=== PATIENT | female | born 2000 | race Caucasian/White ===

== ENCOUNTER 2020-01-31 18:12 | Emergency (ER) | payer SELFPAY ==
--- OUTSIDE RECORDS SUMMARY | 2020-01-31 18:13 | XMS REPORT | Continuity of Care Document ---
:2000 Author Organization [facility] t Address [address] [place] [address] Care Team Providers Name Role Phone Domenic Ly Attending Clinician Doctor Unassigned, Name Attending Clinician Unavailable Problems This patient has no known problems. Allergies, Adverse Reactions, Alerts This patient has no known allergies or adverse reactions. Medications This patient has no known medications. Procedures This patient has no known procedures. Encounters Start End Encounter Admission Attending Care Care Encounter Source Date/Time Date/Time Type Type Clinicians Facility Department ID 2019-02-25 2019-02-25 Emergency Reymundo [facility] [id number] 16:24:07 17:40:00 Teddy Mcknight [id number] [place] [id number] [place] [id number] 2019-02-25 2019-02-25 Orders Doctor ANNE [id number] 00:00:00 00:00:00 Only UnassJUSTINE duggan [id number] [employer] [facility] [id number] Results This patient has no known results.
[2020-01-31 19:31] LABS: Urine Blood TRACE (NEG); Urine Glucose NEGATIVE (NEG); Urine Protein NEGATIVE (NEG); Urine Specific Gravity >1.030 (1.005-1.030); Urine pH 6.5 (5.0-7.0)
--- NOTE | 2020-01-31 23:03 | EDPHYS ---
Physician Documentation [facility] Name: Taryn Marvin Age: 19 yrs Sex: Female : 2000 Arrival Date: 01/31/2020 Time: 18:15 Bed 20 Private MD: ED Physician Cam Dumont HPI: 01/30 19:08 This 19 yrs old Female presents to ER via Ambulatory with complaints of jr8 Abdominal Pain. 19:08 The patient presents with abdominal pain in the periumbilical area. right lower jr8 quadrant. Onset: The symptoms/episode began/occurred gradually, 2 day(s) ago, and became worse and became persistent. The symptoms radiate to right back. Associated signs and symptoms: none. The symptoms are described as sharp. Modifying factors: The symptoms are alleviated by nothing, the symptoms are aggravated by nothing. Severity of pain: At its worst the pain was moderate in the emergency department the pain is unchanged. The patient has not experienced similar symptoms in the past. The patient has not recently seen a physician. 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 - Social history:: Smoking status: Patient denies any tobacco usage or history of. ROS: 19:08 Eyes: Negative for injury, pain, redness, and discharge, ENT: Negative for injury, jr8 pain, and discharge, Neck: Negative for injury, pain, and swelling, Cardiovascular: Negative for chest pain, palpitations, and edema, Respiratory: Negative for shortness of breath, cough, wheezing, and pleuritic chest pain, Back: Negative for injury and pain, MS/Extremity: Negative for injury and deformity, Skin: Negative for injury, rash, and discoloration, Neuro: Negative for headache, weakness, numbness, tingling, and seizure. 19:08 Abdomen/GI: Positive for abdominal pain, Negative for nausea, vomiting, and diarrhea, constipation, abdominal cramps, abdominal distension. Exam: 19:08 Eyes: Pupils equal round and reactive to light, extra-ocular motions intact. Lids and jr8 lashes normal. Conjunctiva and sclera are non-icteric and not injected. Cornea within normal limits. Periorbital areas with no swelling, redness, or edema. ENT: Nares patent. No nasal discharge, no septal abnormalities noted. Tympanic membranes are normal and external auditory canals are clear. Oropharynx with no redness, swelling, or masses, exudates, or evidence of obstruction, uvula midline. Mucous membranes moist. Neck: Trachea midline, no thyromegaly or masses palpated, and no cervical lymphadenopathy. Supple, full range of motion without nuchal rigidity, or vertebral point tenderness. No Meningismus. Cardiovascular: Regular rate and rhythm with a normal S1 and S2. No gallops, murmurs, or rubs. Normal PMI, no JVD. No pulse deficits. Respiratory: Lungs have equal breath sounds bilaterally, clear to auscultation and percussion. No rales, rhonchi or wheezes noted. No increased work of breathing, no retractions or nasal flaring. Back: No spinal tenderness. No costovertebral tenderness. Full range of motion. Skin: Warm, dry with normal turgor. Normal color with no rashes, no lesions, and no evidence of cellulitis. MS/ Extremity: Pulses equal, no cyanosis. Neurovascular intact. Full, normal range of motion. Neuro: Awake and alert, GCS 15, oriented to person, place, time, and situation. Cranial nerves II-XII grossly intact. Motor strength 5/5 in all extremities. Sensory grossly intact. Cerebellar exam normal. Normal gait. 19:08 Abdomen/GI: Inspection: abdomen appears normal, Bowel sounds: active, all quadrants, Palpation: soft, in all quadrants, moderate abdominal tenderness, in the umbilical area and right lower quadrant, mass, that is pulsatile, rebound tenderness, is not appreciated, voluntary guarding, is not appreciated, involuntary guarding, is not appreciated, no appreciated organomegaly, Indicators: McBurney's point is not tender, Rodrigez's sign is negative, Rovsing's sign is negative, Liver: tenderness, is not appreciated. Vital Signs: 18:39 BP 122 / 81; Pulse 93; Resp 16; Temp 97.1; Pulse Ox 100% on R/A; Weight 74.84 kg; iw Height 5 ft. 2 in. (157.48 cm); 19:00 BP 109 / 69; Pulse 91; Resp 16; Pulse Ox 99% ; Pain 0/10; mt2 21:01 BP 115 / 69; Pulse 94; Resp 16; Pulse Ox 99% ; Pain 0/10; mt2 22:00 BP 104 / 78; Pulse 89; Resp 16; Pulse Ox 98% on R/A; Pain 0/10; mt2 18:39 Body Mass Index 30.18 (74.84 kg, 157.48 cm) MDM: 18:47 Patient medically screened. jr8 22:50 Data reviewed: vital signs, nurses notes, radiologic studies, CT scan. Data jr8 interpreted: Pulse oximetry: on room air is 98 %. Interpretation: normal. 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 ED course: Patient hemodynamically stable. No acute findings on CT. Lab nor Nursing staff could establish and IV or get blood. Patient did not want to be stuck any longer which is understandable. Convinced patient to a least let us scan her to make sure there was nothing surgically emergent going on which she let us do. Recommended f/u with PCP and GI. If she were to run fever or worsen to immediately come back. Patient grateful and understood instructions . 01/30 18:58 Order name: Urine Dipstick--Ancillary (enter results); Complete Time: 20:04 01/30 18:46 Order name: IV Saline Lock; Complete Time: 21:37 [facility] 01/30 18:46 Order name: Labs collected and sent; Complete Time: 21:37 [facility] 01/30 18:46 Order name: Urine Test (obtain specimen); Complete Time: 18:57 [facility] 01/30 18:46 Order name: Urine Dipstick-Ancillary (obtain specimen); Complete Time: 18:57 [facility] 01/30 18:58 Order name: Urine --Ancillary (enter results); Complete Time: 20:04 01/30 20:22 Order name: Abdomen EDMS Administered Medications: No medications were administered Disposition: 01/31/20 23:03 Discharged to Home. Impression: Lower abdominal pain, unspecified. - Condition is Stable. - Discharge Instructions: Abdominal Pain, Adult. - Medication Reconciliation Form, Thank You Letter, Antibiotic Education, Prescription Opioid Use form. - Follow up: Trace Rivera MD; When: 1 week; Reason: If symptoms return, Recheck today's complaints, Continuance of care, Re-evaluation by your physician. - Problem is new. - Symptoms have improved. Addendum: 02/04/2020 20:26 Co-signature as Attending Physician, Cam Dumont MD. r n Signatures: Dispatcher [employer] EDVT Elaine Elena RN RN Cam Gonzalez MD MD rn Luis Vanessa, MARIANO PA jr8 Alondra Romero RN RN mt2 Corrections: (The following items were deleted from the chart) 01/30 20:22 20:05 Abdomen Pelvis W Con+CT.RAD.BRZ ordered. [facility] EDVT 23:13 23:03 01/31/2020 23:03 Discharged to Home. Impression: Lower abdominal pain, mt2 unspecified. Condition is Stable. Forms are Medication Reconciliation Form, Thank You Letter, Antibiotic Education, Prescription Opioid Use. Follow up: Trace Rivera; When: 1 week; Reason: If symptoms return, Recheck today's complaints, Continuance of care, Re-evaluation by your physician. Problem is new. Symptoms have improved. jr8
--- NOTE | 2020-01-31 23:03 | ER ---
Nurse's Notes [facility] Name: Taryn Marvin Age: 19 yrs Sex: Female : 2000 Arrival Date: 01/31/2020 Time: 18:15 Bed 20 Private MD: Diagnosis: Lower abdominal pain, unspecified Presentation: 01/30 18:39 Chief complaint: Patient states: RLQ pain since last also nauseated after iw eating, also having back pains, RLQ was tender to touch, no vomiting, pain lessens after urinating. Coronavirus screen: At this time, the client does not indicate any symptoms associated with coronavirus-19. Ebola Screen: Patient negative for fever greater than or equal to 101.5 degrees Fahrenheit, and additional compatible Ebola Virus Disease symptoms Patient denies exposure to infectious person. Patient denies travel to an Ebola-affected area in the 21 days before illness onset. No symptoms or risks identified at this time. Initial Sepsis Screen: Does the patient meet any 2 criteria? No. Patient's initial sepsis screen is negative. Does the patient have a suspected source of infection? No. Patient's initial sepsis screen is negative. Risk Assessment: Do you want to hurt yourself or someone else? Patient reports no desire to harm self or others. Onset of symptoms was January 27, 2020. 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 - Social history:: Smoking status: Patient denies any tobacco usage or history of. Screenin:10 Abuse screen: Denies threats or abuse. Nutritional screening: No deficits noted. mt2 Tuberculosis screening: No symptoms or risk factors identified. Fall Risk None identified. Assessment: 19:15 Reassessment: Patient and/or family updated on plan of care and expected duration. Pain mt2 level reassessed. Patient is alert, oriented x 3, equal unlabored respirations, skin warm/dry/pink. General: Appears in no apparent distress. Behavior is cooperative. Pain: Complains of pain in right lower quadrant Pain currently is 4 out of 10 on a pain scale. GI: Abdomen is flat, Bowel sounds present X 4 quads. Abdomen is tender to palpation. 20:00 Reassessment: PHLEBO TECH at bedside for lab draw, unsuccessful attempt at obtaining sg labs at this time. 20:21 Reassessment: UNSUCCESSFUL IV ATTEMPT AND BLOOD DRAW. PROVIDER INFORMED. PT TO HAVE mt2 ORAL CONTRAST FOR CT. 20:59 Reassessment: PT COMPLETED ORAL CONTRAST AT 2036. mt2 21:00 Reassessment: Patient and/or family updated on plan of care and expected duration. Pain mt2 level reassessed. Patient is alert, oriented x 3, equal unlabored respirations, skin warm/dry/pink. General: Appears in no apparent distress. comfortable, Behavior is cooperative. 22:00 Reassessment: Patient and/or family updated on plan of care and expected duration. Pain mt2 level reassessed. Patient is alert, oriented x 3, equal unlabored respirations, skin warm/dry/pink. General: Appears in no apparent distress. comfortable, Behavior is cooperative. Pain: Denies pain. Vital Signs: 18:39 BP 122 / 81; Pulse 93; Resp 16; Temp 97.1; Pulse Ox 100% on R/A; Weight 74.84 kg; iw Height 5 ft. 2 in. (157.48 cm); 19:00 BP 109 / 69; Pulse 91; Resp 16; Pulse Ox 99% ; Pain 0/10; mt2 21:01 BP 115 / 69; Pulse 94; Resp 16; Pulse Ox 99% ; Pain 0/10; mt2 22:00 BP 104 / 78; Pulse 89; Resp 16; Pulse Ox 98% on R/A; Pain 0/10; mt2 18:39 Body Mass Index 30.18 (74.84 kg, 157.48 cm) iw ED Course: 18:15 Patient arrived in ED. rg4 18:41 Triage completed. iw 18:42 Arm band placed on. iw 18:46 Lius Vanessa PA is PHCP. jr8 18:46 Cam Dumont MD is Attending Physician. jr8 19:00 Patient has correct armband on for positive identification. Bed in low position. Call mt2 light in reach. Side rails up X 1. 19:17 Alondra Romero RN is Primary Nurse. mt2 19:20 Missed attempt(s): 22 gauge in right antecubital area. Bleeding controlled, band aid ca1 applied, catheter tip intact. 19:32 Missed attempt(s): 22 gauge in right wrist. Bleeding controlled, band aid applied, ca1 catheter tip intact. 20:21 Missed attempt(s):. mt2 21:59 Abdomen In Process Unspecified. EDMS 23:03 Trace Rivera MD is Referral Physician. jr8 23:12 No provider procedures requiring assistance completed. Patient did not have IV access mt2 during this emergency room visit. Administered Medications: No medications were administered Outcome: 23:03 Discharge ordered by . jr8 23:12 Discharged to home ambulatory. mt2 23:12 Condition: good 23:12 Discharge instructions given to patient, Instructed on discharge instructions, follow up and referral plans. medication usage, Demonstrated understanding of instructions, follow-up care, medications. 23:13 Patient left the ED. mt2 Signatures: Dispatcher [employer] EDMS Jerald Hassan RN RN sg Elaine Elena RN RN iw Luis Vanessa PA PA jr8 Vonnie Pierre rg4 Laura Kennedy RN RN ca1 Alondra Romero RN RN mt2
[2020-02-01 00:21] VITALS: TEMP 97.1
[2020-02-01 00:25] VITALS: BP 104/78; O2SAT 98
--- NOTE | 2020-02-01 10:39 | RAD REPORT ---
EXAM DESCRIPTION: CT - Abdomen Pelvis Wo Contrast - 02/01/2020 8:22 am CLINICAL HISTORY: ABD PAIN COMPARISON: None. TECHNIQUE: CT ABDOMEN PELVIS WITHOUT IV CONTRAST on 01/31/2020 8:04 PM CDT This exam was performed according to our departmental dose-optimization program, which includes autom ated exposure control, adjustment of the mA and/or kV according to patient size and/or use of iterati ve reconstruction technique. FINDINGS: Lower lungs are clear. Abdomen: The liver is normal in appearance. There is no biliary dilatation. Gallbladder is normal in appearance. The pancreas and spleen are normal in appearance. The adrenal glands and kidneys are unre markable. Abdominal aorta is normal in course and caliber without aneurysm. There is no free air. There is no r etroperitoneal adenopathy. Pelvis: There is no bowel obstruction. Urinary bladder is unremarkable. There is no free fluid. Uteru s is normal in size. Appendix is somewhat poorly seen but there is no pericecal inflammation. Skeleton: There are no acute osseous findings. No suspicious bony lesions. IMPRESSION: No definite acute process. Electronically signed by: Antoni Duran MD 01/31/2020 10:20 PM CDT Due to temporary technical issues with the PACS/Fluency reporting system, reports are being signed by the in house radiologist without review as a courtesy to ensure prompt reporting. The interpreting r adiologist is fully responsible for the content of the report.
== END 2020-01-31 23:13 | disposition home or self-care (01) ==
LOC: ER 18:12
DX: R10.31 Right lower quadrant pain (principal)
CPT/HCPCS: 74176; 81003; 81025; 99283